=== PATIENT | male | born 2000 | race Caucasian/White ===

== ENCOUNTER 2019-12-15 22:46 | Emergency (ER) | payer OTHER, SELFPAY ==
[2019-12-15 22:59] VITALS: BP 135/87; PULSE 95; RESP 18; TEMP 37.6; O2SAT 100
--- NOTE | 2019-12-15 23:24 | ED.EAR ---
HPI - Ear Problem General Chief complaint: Ear Stated complaint: ear pain and R hip lac Time Seen by Provider: 12/15/19 23:12 History of Present Illness HPI Narrative: Patient presents for left ear pain for 1 week. He says it decreases his hearing. It is not worse with swallowing. He has not had any fever or generalized illness. He has not had this ear pain before. He was scored high on a 1-10 scale. He also complains of a sore in his right groin, that is been there for a month. It did look like a pimple with surrounding redness, but then it popped and drained, and has been very slowly improving. He has no general medical medical problems. He had a surgery on his left hip. He does not smoke cigarettes, drink alcohol, or do drugs. 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 Complaint: ear pain and decreased hearing Location: left ear Duration: constant Severity: severe Relieving factors: nothing Exacerbating factors: palpation Discharge from ear: Reports no Associated symptoms ear: decreased hearing Treatment prior to arrival: none Related Data Allergies Allergy/AdvReac Type Severity Reaction Status Date / Time codeine AdvReac Mild mild Verified 12/15/19 23:21 Review of Systems Review of Systems: Narrative: CONSTITUTIONAL: Denies fever, chills, or sweats. EYES: Denies visual changes, redness, or discharge. ENT: Denies rhinorrhea, congestion, sore throat, just the left ear pain. CARDIOVASCULAR: Denies chest pain, palpitations, or edema. RESPIRATORY: Denies cough or dyspnea. GASTROINTESTINAL: Denies abdominal pain, nausea, vomiting, or diarrhea. GENITOURINARY: Denies dysuria or hematuria. SKIN: A sore in his right groin that previously had pus but is done draining. MUSCULOSKELETAL: Denies back pain, joint pain, or myalgia. NEUROLOGIC: Denies headache, numbness, or weakness. PSYCHIATRIC: Denies anxiety or depression. FOR[facility]LY [facility] Past Medical History Medical History (Updated 12/15/19 @ 23:26 by Ginette Fallon MD) Cellulitis Otitis externa Surgical History Surgical History (Updated 12/15/19 @ 23:27 by Ginette Fallon MD) History of surgery Social History Social History (Updated 12/15/19 @ 23:27 by Ginette Fallon MD) Smoking status: Never smoker Alcohol intake: never Substance use: never Exam Narrative: Exam Narrative: GENERAL: Well-appearing, well-nourished, and in no acute distress. HEAD: Normocephalic, atraumatic. EYES: PERRLA and EOMI. ENT: Nares clear, no rhinorrhea or epistaxis. Mucous membranes moist. Left ear canal is filled with debris, painful with movement of the pinna. NECK: Supple. CHEST: Clear to auscultation. No respiratory distress. HEART: Regular rate and rhythm. No murmur heard. Normal peripheral pulses. ABDOMEN: Soft, nontender, nondistended, normal active bowel sounds. EXTREMITIES: Normal range of motion. No edema. SKIN: Warm, dry, lesion in the right groin about 1 inch by half an inch, red and tender NEURO: No focal deficits. Alert and oriented x3. PSYCH: Normal mood and affect. Course Vital Signs Vital signs: Vital Signs Temperature 99.7 F H 12/15/19 22:59 Pulse Rate 95 12/15/19 22:59 Respiratory Rate 18 12/15/19 22:59 Blood Pressure 135/87 12/15/19 22:59 Pulse Oximetry 100 12/15/19 22:59 Temperature 99.7 F H 12/15/19 22:59 Pulse Rate 95 12/15/19 22:59 Respiratory Rate 18 12/15/19 22:59 Blood Pressure 135/87 12/15/19 22:59 Pulse Oximetry 100 12/15/19 22:59 Medical Decision Making Medical Records Medical records reviewed: Yes I reviewed the patient's medical records. Vital Signs Vital Signs: Vital Signs Temperature 99.7 F H 12/15/19 22:59 Pulse Rate 95 12/15/19 22:59 Respiratory Rate 18 12/15/19 22:59 Blood Pressure 135/87 12/15/19 22:59 Pulse Oximetry 100 12/15/19 22:59 Temperature 99.7 F H 12/15/19 22:59 Pulse Rate 95 12/15/19 22:59 Respiratory Rate 18 12/15/19 22:59 Blood Pressure 135/87
[2019-12-15] MEDS: IBUPROFEN 600 MG TABLET PO (23:43)
[2019-12-16 01:16] VITALS: BP 132/81; PULSE 90; RESP 16; TEMP 37.1; O2SAT 100
== END 2019-12-16 01:16 | disposition home or self-care (01) ==
LOC: ANHED 23:39
PROVIDERS: Emergency Provider Emergency Medicine
DX: H60.332 Swimmer's ear, left ear (principal); L03.314 Cellulitis of groin
CPT/HCPCS: 73140; 99283; A9270